=== PATIENT | female | born 1995 | race Caucasian/White ===

== ENCOUNTER 2020-10-16 20:45 | Emergency (ER) | payer OTHER, SELFPAY ==
--- NOTE | ~2020-10-16 | CT_ITS ---
EXAMINATION: CT ABDOMEN AND PELVIS WITHOUT CONTRAST CLINICAL INFORMATION: Right flank pain with radiation to groin COMPARISON: Ultrasound abdomen 10/30/2018 TECHNIQUE: Multidetector volumetric imaging was performed from the superior aspect of the liver through the pubic symphysis. Sagittal and coronal reformatted images were obtained on the technologist's workstation. This CT examination was performed using dose optimization techniques as appropriate, variously including the following: *Automated exposure control *Adjustment of mA and/or kV according to patient size (this includes techniques or standardized protocols for targeted exams where dose is matched to indication/reason for exam; i.e. extremities or head) *Use of iterative reconstruction technique DLP: 984 mGy-cm FINDINGS: LUNG BASES: The visualized lung bases are unremarkable. LIVER, GALLBLADDER, AND BILIARY TREE: The liver is normal in size, shape, and attenuation. No focal hepatic lesion or biliary ductal dilatation is present. The gallbladder is unremarkable with no evidence of radiopaque gallstones, gallbladder wall thickening, or obvious pericholecystic inflammatory changes. PANCREAS: Unremarkable. SPLEEN: Unremarkable. ADRENAL GLANDS: Unremarkable. KIDNEYS AND URETERS: Right: There is a 2.5 mm obstructing calculus present at the right ureterovesical junction there is minimal prominence of the ureter and only minimal prominence of the collecting system. An additional nonobstructing punctate even smaller calculus is present at the right upper pole. No renal masses are seen Left: 2 small punctate nonobstructing left-sided calculi are present the largest is in the lower pole measuring 2.3 mm. No left-sided hydronephrosis is seen. No left renal masses are present. The left ureter is nondilated. BLADDER: Empty and cannot be adequately evaluated. There is a stone at the right ureterovesical junction (see above). A urachal remnant is present. GASTROINTESTINAL TRACT: The small and large bowel are unremarkable. The appendix is tiny but unremarkable. ABDOMINAL WALL: No significant hernia is appreciated. LYMPH NODES: Normal. VASCULAR: Unremarkable. PELVIC VISCERA: An anteverted uterus is present. An abnormal adnexal mass or free intraperitoneal fluid is not seen. OSSEOUS STRUCTURES: Unremarkable. CT/CT abdomen pelvis wo con IMPRESSION: 2.5 mm right-sided calculus lodged at the right ureterovesical junction. There are other bilateral small punctate intrarenal nonobstructing calculi present.
[2020-10-16 21:11] VITALS: BP 161/82; PULSE 106; RESP 20; TEMP 36.6; BMI 38.9
[2020-10-16 22:08] LABS: MANUAL DIFF FLAG NO
[2020-10-16 22:09] LABS: Basophils Percent Auto 0.4 % (0-2); Eosinophils Percent Auto 0.2 % (0-4); Hematocrit 37.7 % (37-47); Hemoglobin 12.1 g/dl (12.0-16.0); Imm Gran Abs Auto 0.03 X10*3/uL (0.00-0.03); Imm Gran Pct Auto 0.3 % (0.0-0.4); Lymphocytes Absolute Auto 0.9 X10*3/uL (1.2-4.9); Lymphocytes Percent Auto 8.7 % (20-40); Mean Corpuscular HGB Conc 32.1 g/dl (31.0-35.0); Mean Corpuscular Hemoglobin 27.2 pg (27.0-33.0); Mean Corpuscular Volume 84.7 fL (80-98); Monocytes Absolute Auto 0.3 X10*3/uL (0.1-1.2); Monocytes Percent Auto 2.9 % (2-11); Neutrophils Absolute Auto 8.9 X10*3/uL (2.0-8.3); Neutrophils Percent Auto 87.5 % (45-73); Platelet Count 327 X10*3/uL (160-400); Red Blood Count 4.45 X10*6/uL (4.20-5.50); Red Cell Distribution Width 12.9 % (11.0-16.0); White Blood Count 10.1 X10*3/uL (4.8-10.8)
--- NOTE | 2020-10-16 22:49 | ED.ABDPAIN ---
HPI - Abdominal Pain General Chief Complaint: Abdominal Pain Stated Complaint: Lower right abdominal pain Time Seen by Provider: 10/16/20 22:49 Source: patient Mode of arrival: ambulatory Limitations: no limitations History of Present Illness HPI narrative: Patient with right flank pain that started 4 hours ago, patient has had some nausea, feels like she can't pee elicited complaint: abdominal pain and flank pain Pertinent past history: none Onset (ago): hour(s) Pain Consistency: constant Location: R flank Severity: moderate Quality: stabbing Radiation: RLQ Relieving factors: nothing Associated symptoms: nausea Related Data Previous Rx's Medication Instructions Recorded naproxen [Naprosyn] 500 mg PO BID #20 tab 10/17/20 ondansetron HCl [Zofran] 4 mg PO Q8H PRN #10 tab 10/17/20 tamsulosin [Flomax] 0.4 mg PO DAILY #10 cap 10/17/20 Allergies Allergy/AdvReac Type Severity Reaction Status Date / Time No Known Allergies Allergy Verified 10/16/20 21:10 [No Known Allergies*] Review of Systems Constitutional: Reports no additional constitutional complaints Eyes: Reports no additional eye complaints Denies dizziness Cardiovascular: Reports no additional cardiovascular complaints Respiratory: Reports as per HPI Gastrointestinal: Reports no additional gastrointestinal complaints Genitourinary: Reports no additional female genitourinary complaints Musculoskeletal: Reports no additional musculoskeletal complaints Skin/Breast: Denies rash Reports system reviewed and no additional complaints, except as documented, Denies dizziness and Denies Sensory deficit (Neuro) Psychiatric: Denies anxiety Physical Exam Vital Signs: Vital Signs: Last Vital Signs Temp 97.6 F 10/17/20 00:50 Pulse 116 H 10/17/20 00:50 Resp 18 10/17/20 00:50 BP 130/86 10/17/20 00:50 Pulse Ox 96 10/17/20 00:50 Body Mass Index 38.9 Const: Other: female in obvious pain Nutritional Appearance: obese Orientation/consciousness: oriented to person and patient oriented x3 Limitations: no limitations HENMT: Head: Yes normal to inspection Ears: external ears normal General nose exam: Normal external nose present Mouth: Normal oral and palatal mucosa present and oropharynx normal Throat: Yes posterior oropharynx normal Eyes: General: appearance normal, both eyes and all related structures Neck: Other: supple Neck: Yes normal visual inspection Chest: Chest palpation & inspection: normal inspection of the chest Resp: Auscultation: clear to auscultation bilaterally Cardio: Jugular venous distension: no JVD Rate: regular rate Rhythm: regular rhythm Heart sounds: S1 normal heart sound present and S2 normal heart sound present GI: Inspection: Yes normal to inspection Palpation (GI): Soft to palpation, nontender and No hepatosplenomegaly present Auscultation: normal bowel sounds : Other: right CVAT Skin: General skin exam: no rashes or lesions noted Neuro: General: oriented to person and patient oriented x3 Cranial nerves: Yes CN's II-XII intact bilaterally Motor exam (neuro): 5/5 motor strength present throughout Sensory Exam: No Sensory deficit (Neuro) Extrem: General: Yes normal to inspection Psych: Appearance: grossly normal Course Course Course Narrative: unofficial bedside ultrasound was negative for gallstones Reevaluation(s) Reevaluation #1: improved resting comfortably Time: 01:14 MDM - Abdominal Pain Lab Data Result diagrams: 10/16/20 22:03 10/16/20 22:03 Labs: Lab Results 10/16/20 10/16/20 10/16/20 Range/Units 22:03 22:03 22:03 WBC 10.1 (4.8-10.8) X10*3/uL RBC 4.45 (4.20-5.50) X10*6/uL Hgb 12.1 (12.0-16.0) g/dl Hct 37.7 (37-47) % MCV 84.7 (80-98) fL MCH 27.2 (27.0-33.0) pg MCHC 32.1 (31.0-35.0) g/dl RDW 12.9 (11.0-16.0) % Plt Count 327 (160-400) X10*3/uL MPV 10.0 (9.4-12.3) fL Immature Gran % (Auto) 0.3 (0.0-0.4) % Neut % (Auto) 87.5 H (45-73) % Lymph % (Auto) 8.7 L (20-40) % [place] % (Auto) 2.9 (2-11) % Eos % (Auto) 0.2 (0-4) % Baso % (Auto) 0.4 (0-2) % Lymph # (Auto) 0.9 L (1.2-4.9) X10*3/uL [place] # (Auto) 0.3 (0.1-1.2) X10*3/uL Eos # (Auto) 0.0 (0.0-0.4) X10*3/uL Baso # (Auto) 0.0 (0.0-0.2) X10*3/uL Abs Immat Gran (auto) 0.03 (0.00-0.03) X10*3/uL Absolute Neuts (auto) 8.9 H (2.0-8.3) X10*3/uL Absolute Nucleated RBC 0.000 (0.0-0.012) X10*3/uL Nucleated RBC % (auto) 0.0 (0.0-0.2) /100WBC Hold Blue Top SEE NOTE Sodium 140 (135-145) mmol/L Potassium 4.4 (3.3-5.1) mmol/L Chloride 105 (96-108) mmol/L Carbon Dioxide 24 (22-29) mmol/L Anion Gap 15 (12-20) BUN 11 (9-16) mg/dL Creatinine 0.70 (0.5-1.4) mg/dL Estim Creat Clear Calc 144.8 Estimated GFR > 60 Random Glucose 116 H (60-115) mg/dL Calcium 9.3 (8.4-10.2) mg/dL Total Bilirubin 0.2 (0.0-1.0) mg/dL AST 10 (5-31) U/L ALT 12 (0-31) U/L Alkaline Phosphatase 89 (39-117) U/L Total Protein 7.8 (6.5-8.0) g/dL Albumin 4.4 (3.5-5.0) g/dL Lipase 6 L (8-78) U/L Urine Color Urine Appearance Urine pH (5.0-8.0) Ur Specific [place] (1.005-1.025) Urine Protein (NEG-TRACE) MG/DL Urine Glucose (UA) (NEG) MG/DL Urine Ketones (NEG) MG/DL Urine Blood (NEG) Urine Nitrite (NEG) Ur Leukocyte Esterase (NEG) Urine RBC (0) /HPF Urine WBC (0-4) /HPF Ur Squamous Epith Cells /LPF Amorphous Sediment /LPF Urine Bacteria /LPF Urine Mucus /LPF Urine Test (NEGATIVE) 10/17/20 10/17/20 Range/Units 00:44 00:44 WBC (4.8-10.8) X10*3/uL RBC (4.20-5.50) X10*6/uL Hgb (12.0-16.0) g/dl Hct (37-47) % MCV (80-98) fL MCH (27.0-33.0) pg MCHC (31.0-35.0) g/dl RDW (11.0-16.0) % Plt Count (160-400) X10*3/uL MPV (9.4-12.3) fL Immature Gran % (Auto) (0.0-0.4) % Neut % (Auto) (45-73) % Lymph % (Auto) (20-40) % [place] % (Auto) (2-11) % Eos % (Auto) (0-4) % Baso % (Auto) (0-2) % Lymph # (Auto) (1.2-4.9) X10*3/uL [place] # (Auto) (0.1-1.2) X10*3/uL Eos # (Auto) (0.0-0.4) X10*3/uL Baso # (Auto) (0.0-0.2) X10*3/uL Abs Immat Gran (auto) (0.00-0.03) X10*3/uL Absolute Neuts (auto) (2.0-8.3) X10*3/uL Absolute Nucleated RBC (0.0-0.012) X10*3/uL Nucleated RBC % (auto) (0.0-0.2) /100WBC Hold Blue Top Sodium (135-145) mmol/L Potassium (3.3-5.1) mmol/L Chloride (96-108) mmol/L Carbon Dioxide (22-29) mmol/L Anion Gap (12-20) BUN (9-16) mg/dL Creatinine (0.5-1.4) mg/dL Estim Creat Clear Calc Estimated GFR Random Glucose (60-115) mg/dL Calcium (8.4-10.2) mg/dL Total Bilirubin (0.0-1.0) mg/dL AST (5-31) U/L ALT (0-31) U/L Alkaline Phosphatase (39-117) U/L Total Protein (6.5-8.0) g/dL Albumin (3.5-5.0) g/dL Lipase (8-78) U/L Urine Color YELLOW Urine Appearance HAZY Urine pH 6.0 (5.0-8.0) Ur Specific [place] 1.020 (1.005-1.025) Urine Protein NEG (NEG-TRACE) MG/DL Urine Glucose (UA) NEG (NEG) MG/DL Urine Ketones NEG (NEG) MG/DL Urine Blood 3+ H (NEG) Urine Nitrite NEG (NEG) Ur Leukocyte Esterase NEG (NEG) Urine RBC 50-75 H (0) /HPF Urine WBC 0 (0-4) /HPF Ur Squamous Epith Cells TRACE /LPF Amorphous Sediment TRACE /LPF Urine Bacteria TRACE /LPF Urine Mucus 1+ /LPF Urine Test NEGATIVE (NEGATIVE) Imaging Data CT scan - abdomen: Radiologist's impression: IMPRESSION: 2.5 mm right-sided calculus lodged at the right ureterovesical junction. There are other bilateral small punctate intrarenal nonobstructing calculi present. Discharge Plan Discharge Clinical Impression: Calculus of kidney Patient Disposition: Home, Self-Care Instructions: Renal Colic (ED) Additional Instructions: strain all urine for kidney stone Prescriptions: New ondansetron HCl [Zofran] 4 mg tablet 4 mg PO Q8H PRN (Reason: nausea and vomiting) Qty: 10 RF: 0 naproxen [Naprosyn] 500 mg tablet 500 mg PO BID Qty: 20 RF: 0 tamsulosin [Flomax] 0.4 mg capsule 0.4 mg PO DAILY Qty: 10 RF: 0 Referrals: Dewayne Carson MD [Physician] - 1 week [facility] Past Medical History Medical History Depression Surgical History History of placement of ear tubes Family History Family History Father No problems noted. Mother No problems noted. Maternal Grandfather Hypertension CVD (cardiovascular disease) Social History Social History Alcohol intake: current Alcohol intake frequency: does not drink Smoking Status: Never smoker Use of substances other than those prescribed or required for medical reasons: No Advance Directives: No Advance Directives Information Provided: Yes
[2020-10-16 22:50] LABS: Alanine Aminotransferase 12 U/L (0-31); Albumin Level 4.4 g/dL (3.5-5.0); Alkaline Phosphatase 89 U/L (39-117); Anion Gap 15 (12-20); Aspartate Amino Transferase 10 U/L (5-31); Bilirubin Total 0.2 mg/dL (0.0-1.0); Blood Urea Nitrogen 11 mg/dL (9-16); Calcium 9.3 mg/dL (8.4-10.2); Carbon Dioxide 24 mmol/L (22-29); Chloride 105 mmol/L (96-108); Creatinine Clr Calc Pharmacy 144.8; Estimated Glomerular Filt Rate > 60; Glucose Random 116 mg/dL (60-115); Lipase 6 U/L (8-78); Potassium 4.4 mmol/L (3.3-5.1); Sodium 140 mmol/L (135-145); Total Protein 7.8 g/dL (6.5-8.0)
--- NOTE | 2020-10-16 23:01 | PC.NURSE ---
REPORT FROM ROHINI MOSQUEDA. PLAN OF CARE FOR IMAGING.
[2020-10-16] MEDS: ondansetron HCL 4 MG/2 ML VIAL IVPUSH (23:14)
[2020-10-16] MEDS: Ketorolac Tromethamine 30 MG/ML VIAL IVPUSH (23:14)
[2020-10-16] MEDS: 0.9 % Sodium Chloride 1,000 ML 999 ML IVCONT (23:14)
[2020-10-17] MEDS: 0.9 % Sodium Chloride 1,000 ML 999 ML IVCONT (00:15)
[2020-10-17 00:50] VITALS: BP 130/86; PULSE 116; RESP 18; TEMP 36.4; O2SAT 96
[2020-10-17 00:54] LABS: Glucose Urine UA NEG (NEG); Leukocyte Esterase Urine NEG (NEG); Nitrite Urine NEG (NEG); Urine Blood 3+ (NEG); Urine Ketones NEG (NEG); Urine Protein NEG (NEG-TRACE)
[2020-10-17 00:56] LABS: Appearance Urine HAZY; Color Urine YELLOW
[2020-10-17 01:01] LABS: Amorphous Sediment Urine TRACE /LPF; Bacteria Urine TRACE /LPF; Mucus Urine 1+ /LPF; RBC Urine 50-75 /HPF (0); Squamous Epithelial Cell Urine TRACE /LPF; WBC Urine 0 /HPF (0-4)
[2020-10-17 01:13] LABS: Urine Pregnancy NEGATIVE (NEGATIVE)
[2020-10-17 01:14] LABS: UPreg QC Valid YES
== END 2020-10-17 01:30 | disposition home or self-care (01) ==
PROVIDERS: Emergency Provider Emergency Medicine; PCP Internal Medicine
DX: N20.0 Calculus of kidney (principal); Z79.899 Other long term (current) drug therapy
CPT/HCPCS: 36415; 74176; 80053; 81001; 81025; 83690; 85025; 96365; 96375; 99284; J1885; J2405

== ENCOUNTER → 2020-11-06 13:58 | Outpatient (BNVA) | payer OTHER, SELFPAY | PROVIDERS: PCP Internal Medicine; Visit Provider Urology ==

== ENCOUNTER 2021-04-15 09:01 | Outpatient (REF) | payer OTHER, SELFPAY | END 2021-04-15 09:02 | disposition home or self-care (01) | LOC: HO.LAB 09:01 | PROVIDERS: PCP Internal Medicine; Visit Provider Internal Medicine | DX: Z13.89 Encounter for screening for other disorder (principal) ==

== ENCOUNTER 2021-05-18 10:27 | Outpatient (REF) | payer OTHER, SELFPAY ==
--- NOTE | ~2021-05-18 | US_ITS ---
EXAMINATION: US RETROPERITONEAL LIMITED (RENAL ONLY) CLINICAL INFORMATION: Calculus of kidney. COMPARISON: CT abdomen and pelvis 10/16/2020. Ultrasound abdomen 10/30/2018. TECHNIQUE: Real-time imaging of the kidneys. FINDINGS: RIGHT KIDNEY: 12.0 x 6.0 x 5.3 cm (SAG x AP x TRV). The kidney is normal in size, contour, and echogenicity. Renal cortical thickness is normal. No calculi or focal parenchymal lesions. No hydronephrosis. There are multiple echogenic foci seen with no twinkling. LEFT KIDNEY: 12.0 x 5.1 x 5.3 cm (SAG x AP x TRV). The kidney is normal in size, contour, and echogenicity. Renal cortical thickness is normal. No calculi or focal parenchymal lesions. No hydronephrosis. There is echogenic calcification versus stone in lower pole measuring 0.5 x 0.2 cm with no twinkling. US/US renal BI IMPRESSION: Multiple echogenic foci with no twinkle artifact in both kidneys. No cyst or solid mass seen. There is no hydronephrosis.
== END 2021-05-18 10:28 | disposition home or self-care (01) ==
LOC: HO.US 10:27
PROVIDERS: PCP Internal Medicine; Visit Provider Urology
DX: N20.0 Calculus of kidney (principal)
CPT/HCPCS: 76775

== ENCOUNTER → 2021-05-25 10:50 | Outpatient (BNVA) | payer OTHER, SELFPAY | PROVIDERS: PCP Internal Medicine ==

== ENCOUNTER 2022-03-11 08:26 | Outpatient (REF) | payer OTHER, SELFPAY ==
--- NOTE | ~2022-03-11 | US_ITS ---
EXAMINATION: US RETROPERITONEAL LIMITED (RENAL ONLY) CLINICAL INFORMATION: Calculus kidney. COMPARISON: Renal ultrasound 05/18/2021. CT abdomen and pelvis 10/16/2020. Ultrasound abdomen complete 10/30/2018. TECHNIQUE: Real-time imaging of the kidneys. Limited visualization due to bowel gas, body habitus and technical factors. FINDINGS: RIGHT KIDNEY: 12.6 x 5.0 x 5.1 cm (SAG x AP x TRV). Multiple punctate echogenic foci, possibly nonobstructing renal calculi.No hydronephrosis. LEFT KIDNEY: 12.3 x 5.1 x 5.2 cm (SAG x AP x TRV). Multiple punctate echogenic foci, possibly nonobstructing renal calculi.No hydronephrosis. US/US renal BI IMPRESSION: Multiple punctate echogenic foci, possibly representing nonobstructing bilateral renal calculi.No hydronephrosis.
== END 2022-03-11 08:27 | disposition home or self-care (01) ==
LOC: HO.US 08:26
PROVIDERS: Visit Provider Urology
DX: N20.0 Calculus of kidney (principal)
CPT/HCPCS: 76775

== ENCOUNTER 2022-04-26 09:36 | Outpatient (REF) | payer OTHER, SELFPAY ==
[2022-04-26 13:24] LABS: Alanine Aminotransferase 8 U/L (0-31); Albumin Level 4.1 g/dL (3.5-5.0); Alkaline Phosphatase 81 U/L (39-117); Anion Gap 14 (12-20); Aspartate Amino Transferase 10 U/L (5-31); Bilirubin Total 0.6 mg/dL (0.0-1.0); Blood Urea Nitrogen 8 mg/dL (9-16); Carbon Dioxide 22 mmol/L (22-29); Chloride 107 mmol/L (96-108); Cholesterol 185 mg/dL; Estimated Glomerular Filt Rate > 60; Glucose Random 83 mg/dL (60-115); HDL Cholesterol 54 mg/dL; LDL Cholesterol Calculated 108 mg/dl; Potassium 4.3 mmol/L (3.3-5.1); Sodium 139 mmol/L (135-145); Thyroid Stimulating Hormone 6.57 uIU/mL (0.32-4.0); Total Protein 7.2 g/dL (6.5-8.0); Triglycerides 117 mg/dL
== END 2022-04-26 09:37 | disposition home or self-care (01) ==
LOC: HO.LAB 09:36
PROVIDERS: PCP Internal Medicine; Visit Provider Internal Medicine
DX: Z00.00 Encounter for general adult medical examination without abnormal findings (principal); E66.01 Morbid (severe) obesity due to excess calories; Z68.41 Body mass index [BMI] 40.0-44.9, adult
CPT/HCPCS: 36415; 80053; 80061; 84443

== ENCOUNTER 2023-05-03 08:24 | Outpatient (AMB) | payer OTHER, SELFPAY ==
[2023-05-03 08:27] VITALS: BP 126/80; PULSE 115; O2SAT 98; BMI 40.3
--- NOTE | 2023-05-03 08:27 | MHC.PC.OV ---
Vital Signs 05/03/23 08:27 Height 5 ft 4 in Weight 235 lb BMI 40.3 BP 126/80 Blood Pressure Location Lt brachial Position Sitting Pulse 115 H Pulse Source Pulse Oximeter Pulse Oximetry (%) 98 Oxygen Delivery Method Room Air Intake Visit Reasons: Annual Exam Intake Note: Patient here for a physical exam Shank Breaker Required: No Accompanied by: Self / Same As Patient Allergies No Known Allergies [No Known Allergies*] Allergy (Verified 05/03/23 08:44) Medication List - Last Reconciled 05/03/23 by Sole Childerss MD No Known Home Meds Tobacco use date assessed: 05/03/23 Dental Screening Dental Screen Date: 05/03/23 Did you have a dental visit in the last 12 months?: No Did you have a dental problem in the last 6 months where you did not have access to dental care?: No Was dental information given to patient?: Patient has dentist HPI HPI Comments History of Present Illness Details This is a 27-year-old female with morbid obesity and moderate recurrent major depression that comes for her physical exam. She has a BMI of 40.3 and declines weight loss surgery. She still has depression but declines any type of treatment. Last Pap smear was 2018 and was negative. [facility] Medical History (Updated 05/03/23 @ 09:15 by Sole Childress MD) Insomnia FERNANDO (generalized anxiety disorder) Moderate recurrent major depression Pure hypercholesterolemia Morbid obesity with BMI of 40.0-44.9, adult Depression Surgical History History of placement of ear tubes Family History Father No problems noted. Mother Mental health disorder Maternal Grandfather Hypertension CVD (cardiovascular disease) Social History Housing: Apartment Alcohol intake: current Alcohol intake frequency: holidays/special occasions only Alcohol type: other Patient Tobacco Use Status: Former Tobacco user Tobacco use type: Cigarette e-Cigarette/Vaping Use: Never Used Second Hand Smoke Exposure: No service: No Current occupational status: unemployed Cognitive needs: No Hearing needs: No Vision needs: No Questionnaire PHQ-9 Over the last 2 weeks, how often have you been bothered by any of the following problems? 1. Little interest or pleasure in doing things: nearly every day 2. Feeling down, depressed, or hopeless: nearly every day 3. Trouble falling or staying asleep, or sleeping too much: not at all 4. Feeling tired or having little energy: several days 5. Poor appetite or overeating: several days 6. Feeling bad about yourself - or that you are a failure or have let yourself or your family down: several days 7. Trouble concentrating on things, such as reading the newspaper or watching television: several days 8. Moving or speaking so slowly that other people could have noticed. Or the opposite - being so fidgety or restless that you have been moving around a lot more than usual: not at all 9. Thoughts that you would be better off or of hurting yourself in some way: not at all Total score: 10 Depression Screening Interpretation: Positive Depression Screening Follow-up: Declines treatment Depression Screening Done: Yes 25417 - PHQ-9 Billing: Yes Source: Developed by Drs. Jose Rincon, Uzma Perez, Jamie Snow and colleagues, with an educational jonatan from [employer]. Thrive Questionnaire Date Thrive assessed: 05/03/23 I am a: Patient What is your living situation today?: I have a steady place to live Within the past 12 months, did the food you bought not last and you didn't have the money to get more?: Never true Within the past 12 months, did you worry whether your food would run out before you got money to buy more?: Never true Do you have trouble paying for medicines?: No Do you have trouble getting transportation to medical appointments?: No Do you have trouble paying your heating and electricity bill?: No Do you have trouble taking care of your child, family member or friend?: No Do you have trouble with day-to-day activities such as bathing, preparing meals, shopping, managing finances, etc.?: No Are you currently unemployed and looking for a job?: No Are you interested in more education?: No Please select the resources that you would like help with: None Currently or been in a relationship where the following occur: no concerns reported AUDIT C Alcohol Use Questionnaire (AUDIT-C) 1. How often do you have a drink containing alcohol?: Monthly or less 2. How many drinks containing alcohol do you have on a typical day when you are drinking?: 1 or 2 3. How often do you have six or more drinks on one occasion?: Never Total Score: 1 Score Reviewed/Action Taken: No FERNANDO-7 AMB Questionnaire FERNANDO-7 Date FERNANDO - 7 assessed: 05/03/23 Feeling nervous, anxious, or on edge: 3 = Nearly every day Not being able to stop or control worryin = Several days Worrying too much about different things: 2 = More than half the days Trouble relaxin = Several days Being so restless that it is hard to sit still: 1 = Several days Becoming easily annoyed or irritable: 2 = More than half the days Feeling afraid as if something awful might happen: 2 = More than half the days Total FERNANDO-7 score (0-4 normal; 5-9 mild; 10-14 moderate; 15-21 severe): 12 Source: Developed by Drs. Jose Rincon, Umza Perez, Jamie Snow and colleagues, with an educational jonatan from [employer]. FERNANDO-7 Assessment Billing FERNANDO-7 Assessment Tool: FERNANDO-7 Assessment 24473 Review of Systems Const All systems reviewed & are unremarkable except as noted in HPI and below Eyes Reports no additional complaints, Denies change in vision and Denies other visual disturbances Card Denies chest pain at rest, Denies chest pain with activity, Denies edema, Denies irregular heart rhythm, Denies claudication, Denies dyspnea, Denies dyspnea on exertion, Denies orthopnea, Denies paroxysmal nocturnal dyspnea and Denies slow heart rate Resp Denies cough, Denies dyspnea and Denies dyspnea on exertion GI Denies abdominal pain, Denies change in bowel habits, Denies excessive flatus, Denies nausea and Denies vomiting Denies urinary incontinence, Denies urinary hesitancy and Denies urinary urgency Musc Denies abnormal gait, Denies atrophy, Denies deformity and Denies limited range of motion Skin/Breast Denies bleeding lesions, Denies changing lesions and Denies rash Neuro Denies abnormal gait and Denies lack of coordination Psych Reports anxiety and Reports depression Physical exam (Primary Care) Vital Signs: Last Vital Signs Pulse 115 H 05/03/23 08:27 BP 126/80 05/03/23 08:27 Pulse Ox 98 05/03/23 08:27 Oxygen Delivery Method Room Air 05/03/23 08:27 BMI result Body Mass Index 40.3 Tobacco/Smoking Status: Tobacco use Status Tobacco use date assessed 05/03/23 05/03/23 08:35 Patient Tobacco Use Status Former Tobacco user 05/03/23 08:35 Tobacco use type Cigarette 05/03/23 08:35 e-Cigarette/Vaping Use Never Used 05/03/23 08:35 PHQ-9: PHQ-9 Score PHQ-9: Total score 0 05/03/23 08:35 Depression Screening Interpretation: Positive Depression Screening Follow-up: Declines treatment Thrive Assessment: Date of Thrive Assessment Date Thrive assessed 05/03/23 05/03/23 08:35 Currently or been in a relationship where the following occur: no concerns reported Const Orientation/consciousness: patient oriented x3 HENMT Head: Yes normal to inspection, Yes normocephalic and Yes atraumatic Ears: external ears normal Eyes General: appearance normal, both eyes and all related structures Eyelids: Yes eyelids normal Conjunctivae: conjunctivae normal Neck Neck: Yes normal visual inspection and Yes supple Resp Effort & Inspection: normal respiratory effort Auscultation: clear to auscultation bilaterally Cardio Jugular venous distension: no JVD Rate: regular rate Rhythm: regular rhythm Heart sounds: S1 normal heart sound present and S2 normal heart sound present GI Inspection: Yes normal to inspection Palpation (GI): Soft to palpation and nontender Auscultation: normal bowel sounds Skin General skin exam: no rashes or lesions noted Neuro General: patient oriented x3 and no focal motor deficits Extrem General: Yes full ROM Psych Affect: Sad affect present Attitude: Guarded attititude/behavior present and Avoids eye contact (attititude/behavior) Assessment and Plan Assessment & Plan (1) Encounter for physical examination: Code(s): Z00.00 - Encounter for general adult medical examination without abnormal findings Plan: Repeat in a year. (2) Moderate recurrent major depression: Code(s): F33.1 - Major depressive disorder, recurrent, moderate Plan: Declines any type of treatment including counseling or medication. (3) Morbid obesity with BMI of 40.0-44.9, adult: Code(s): E66.01 - Morbid (severe) obesity due to excess calories; Z68.41 - Body mass index [BMI] 40.0-44.9, adult Plan: Start diet and exercise. BMI goal is less than 30. Orders: Orders Vitamin D 25-OH Total Today E55.9 - Vitamin D deficiency, unspecified Free T4 (Free Thyroxine) Today R79.89 - Other specified abnormal findings of blood chemistry Thyroid Peroxidase Antibodies Today R79.89 - Other specified abnormal findings of blood chemistry Thyroid Stimulating Hormone Today R79.89 - Other specified abnormal findings of blood chemistry Thyroglobulin Antibodies Today R79.89 - Other specified abnormal findings of blood chemistry Comprehensive Met. Panel Today Z00.00 - Encounter for general adult medical examination without abnormal findings Referrals POLLS OR SURVEYS INTERVIEWER Referral Z12.4 - Encounter for screening for malignant neoplasm of cervix Coding Level of Care Code Est Pt Prev Care [id number]([id number]) Diagnoses Encounter for physical examination Z00.00 Moderate recurrent major depression F33.1 Morbid obesity with BMI of 40.0-44.9, adult E66.01; Z68.41 Additional Codes FERNANDO-7 Assessment Billing - FERNANDO-7 Assessment Tool: FERNANDO-7 Assessment 44245 ([id number]) Time Spent (min) 31
== END 2023-05-03 08:56 | disposition home or self-care (01) ==
PROVIDERS: Visit Provider Internal Medicine
DX: Z00.00 Encounter for general adult medical examination without abnormal findings (principal); F33.1 Major depressive disorder, recurrent, moderate; E66.01 Morbid (severe) obesity due to excess calories; Z68.41 Body mass index [BMI] 40.0-44.9, adult
CPT/HCPCS: 96127; 99395

== ENCOUNTER 2023-05-03 09:11 | Outpatient (REF) | payer OTHER, SELFPAY ==
[2023-05-03 11:38] LABS: Alanine Aminotransferase 10 U/L (0-31); Albumin Level 4.1 g/dL (3.5-5.0); Alkaline Phosphatase 86 U/L (39-117); Anion Gap 11 (12-20); Aspartate Amino Transferase 11 U/L (5-31); Bilirubin Total 0.3 mg/dL (0.0-1.0); Blood Urea Nitrogen 10 mg/dL (9-16); Calcium 8.8 mg/dL (8.4-10.2); Carbon Dioxide 26 mmol/L (22-29); Chloride 105 mmol/L (96-108); Estimated Glomerular Filt Rate > 60; Glucose Random 92 mg/dL (60-115); Potassium 3.9 mmol/L (3.3-5.1); Sodium 138 mmol/L (135-145); Total Protein 7.4 g/dL (6.5-8.0)
[2023-05-03 11:55] LABS: Free T4 (Free Thyroxine) 0.96 ng/dL (0.71-1.85); Thyroid Stimulating Hormone 2.97 uIU/mL (0.32-4.0); Vitamin D 25-OH Total 7.9 ng/mL (>30)
[2023-05-04 09:22] LABS: Thyroglobulin Antibodies 9 IU/mL (< or = 1); Thyroid Peroxidase Antibodies 661 IU/mL (<9)
== END 2023-05-03 09:12 | disposition home or self-care (01) ==
LOC: HO.LAB 09:11
PROVIDERS: PCP Internal Medicine; Visit Provider Internal Medicine
DX: Z00.00 Encounter for general adult medical examination without abnormal findings (principal); E55.9 Vitamin D deficiency, unspecified; R79.89 Other specified abnormal findings of blood chemistry
CPT/HCPCS: 36415; 80053; 82306; 84439; 84443; 86376; 86800

== ENCOUNTER 2023-08-02 08:37 | Outpatient (AMB) | payer OTHER, SELFPAY ==
[2023-08-02 08:44] VITALS: BP 118/80; BMI 40.3
--- NOTE | 2023-08-02 08:44 | A.OFFVIS_ITS ---
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 Doing well with no concerns. She tries to eat healthy and stays active with exercise. Regular monthly menses, x6d, painful menses x3d. Uses Tylenol-not providing relief at times. Currently is not sexually active. She denies vaginal itching and irritation. STI screening offered; she accepts. Denies family history of breast, ovarian or colon cancer. Last pap smear 2018, negative. [facility] Medical History Insomnia FERNANDO (generalized anxiety disorder) Moderate recurrent major depression Pure hypercholesterolemia Morbid obesity with BMI of 40.0-44.9, adult Depression Surgical History History of placement of ear tubes Family History Father No problems noted. Mother Mental health disorder Maternal Grandfather Hypertension CVD (cardiovascular disease) Social History Housing: Apartment Alcohol intake: current Alcohol intake frequency: holidays/special occasions only Alcohol type: other Patient Tobacco Use Status: Former Tobacco user Tobacco use type: Cigarette e-Cigarette/Vaping Use: Never Used Second Hand Smoke Exposure: No service: No Current occupational status: unemployed Cognitive needs: No Hearing needs: No Vision needs: No Female Reproductive History Menstrual Duration of menses: 6-7 days Date of last menstrual period: 07/13/23 control method: none Total pregnancies: 0 Date of last pap smear: 02/11/19 (neg) Review of Systems Const All systems reviewed & are unremarkable except as noted in HPI and below Reports as per HPI Eyes Reports no additional complaints ENT Reports no additional complaints Card Reports no additional complaints Resp Reports no additional complaints GI Reports as per HPI and Reports no additional complaints Reports as per HPI Musc Reports no additional complaints Skin/Breast Reports as per HPI Neuro Reports no additional complaints Psych Reports no additional complaints Endo Reports no additional complaints Burak/Lymph Reports no additional complaints Aller/Immun Reports no additional complaints Physical Exam Vital Signs: Last Vital Signs BP 118/80 08/02/23 08:44 BMI result Body Mass Index 40.3 Const General: cooperative, healthy appearing, no acute distress, well developed and alert Orientation/consciousness: patient oriented x3 HEENT Head: Yes normal to inspection Eyes General: appearance normal, both eyes and all related structures Neck Neck: Yes normal visual inspection Thyroid: Thyroid normal Chest Chest palpation & inspection: normal inspection of the chest and other (no puckering, dimpling, peau de orange, retraction, discharge, masses) Breast/axilla inspection: normal inspection of the breasts Breast/axilla palpation: normal palpation of the breasts Resp Effort & Inspection: normal respiratory effort GI Inspection: Yes normal to inspection and Yes obesity Palpation (GI): Soft to palpation Rectal Exam - Female: deferred General: Yes bladder normal to palpation External Female Exam: normal external appearance and normal appearance of the urethra Speculum Exam - Vagina: normal appearance of the vagina, normal palpation and normal vaginal discharge Speculum Exam - Cervix: normal appearance of the cervix and normal palpation Bimanual exam- vagina & uterus: normal bimanual exam, normal palpation, uterine size normal, bladder normal to palpation, normal palpation and non-tender Bimanual Exam- Adnexa, other: no masses Skin General skin exam: no rashes or lesions noted Rashes: no rashes Neuro General: patient oriented x3 Cognition (Neuro): normal cognition Extrem General: Yes normal to inspection Psych Attitude: cooperative Thought process: Normal thought process present Assessment & Plan Assessment & Plan (1) Encounter for well woman exam with routine gynecological exam: Code(s): Z01.419 - Encounter for gynecological examination (general) (routine) without abnormal findings Plan Discussed: Current recommendations for pap smears per ASCCP guidelines. Breast awareness and periodic breast exams. Maintain a healthy lifestyle including a well balanced Mediterranean like diet, and routine exercise, spending time in nature outdoors. Use condoms for STI and prevention. Consider use of ibuprofen 200 mg, 3 doses 2 equals 600 mg take with food and use every 6 hours as needed for the 1st 3 days of her menstrual cycle. She declines a prescription for medication, and will buy saln-myh-rjtchel. Advised she can also additionally use a heating pad for her menstrual cramps. Patient verbalizes understanding and agrees to the plan of care. She was given opportunity to ask questions and all questions were answered to the best of my ability. 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 This note is constructed using voice recognition software. While every effort has been made to ensure accuracy, phone technician errors may have been included. Orders: Orders HIV Ab/Ag Today Z20.2 - Contact with and (suspected) exposure to infections with a predominantly sexual mode of transmission Hepatitis C Antibody Reflex Today Z20.2 - Contact with and (suspected) exposure to infections with a predominantly sexual mode of transmission Hepatitis B Core Antibody Today Z20.2 - Contact with and (suspected) exposure to infections with a predominantly sexual mode of transmission Syphilis Screen Today Z20.2 - Contact with and (suspected) exposure to infections with a predominantly sexual mode of transmission Coding Level of Care Code New Pt Prev Care 18-39yr(22030 Diagnoses Encounter for well woman exam with routine gynecological exam Z01.419
== END 2023-08-02 09:17 | disposition home or self-care (01) ==
PROVIDERS: PCP Internal Medicine; Visit Provider Advanced Practice Midwife
DX: Z01.419 Encounter for gynecological examination (general) (routine) without abnormal findings (principal)
CPT/HCPCS: 99385

== ENCOUNTER 2023-08-02 08:37 | Outpatient (REF) | payer OTHER, SELFPAY ==
[2023-08-02 11:10] LABS: HBc Num1 0.09 S/CO (0.00-0.79); HIV AB/AG Nonreactive (Nonreactive); HIV Num 1 0.05 S/CO (0.00-0.99); Hepatitis B Core Antibody Nonreactive (Nonreactive); ~HepC Num1 0.13 S/CO (0.00-0.79); ~Hepatitis C Antibody Nonreactive (Nonreactive)
[2023-08-02 11:38] LABS: Syphilis Screen Nonreactive (Nonreactive)
[2023-08-02 14:49] LABS: CT PCR NOT DETECTED (Not Detect.); NG PCR NOT DETECTED (Not Detect.)
[2023-08-02 15:27] LABS: BV Int Neg Control Negative (Negative); BV Int Pos Control Positive (Positive)
== END 2023-08-02 08:38 | disposition home or self-care (01) ==
LOC: HO.LAB 08:37
PROVIDERS: PCP Internal Medicine; Visit Provider Advanced Practice Midwife
DX: Z01.419 Encounter for gynecological examination (general) (routine) without abnormal findings (principal); N94.6 Dysmenorrhea, unspecified; Z20.2 Contact with and (suspected) exposure to infections with a predominantly sexual mode of transmission
CPT/HCPCS: 0353U; 86704; 86780; 86803; 87389; 87480; 87510; 87660; 99385

== ENCOUNTER 2023-08-02 09:05 | Outpatient (REF) | payer OTHER, SELFPAY | END 2023-08-02 09:06 | disposition home or self-care (01) | LOC: HO.LNP 09:05 | PROVIDERS: Visit Provider Advanced Practice Midwife | DX: Z01.419 Encounter for gynecological examination (general) (routine) without abnormal findings (principal) | CPT/HCPCS: 88142 ==

== ENCOUNTER 2024-10-17 09:27 | Outpatient (AMB) | payer OTHER, SELFPAY ==
--- NOTE | 2024-10-17 09:30 | A.OFFPC_ITS ---
Vital Signs 10/17/24 09:31 Height 5 ft 4 in Weight 242 lb BMI 41.5 BP 126/80 Blood Pressure Location Lt brachial Position Sitting Intake Visit Reasons: annual exam Intake Note: Patient here for a physical exam Shale Miner Required: No Accompanied by: Self / Same As Patient Allergies No Known Allergies [No Known Allergies*] Allergy (Verified 10/17/24 09:52) Medication List - Last Reconciled 10/17/24 by Sole Childress MD cholecalciferol (vitamin D3) 50 mcg PO DAILY 90 days Tobacco use date assessed: 10/17/24 Dental Screening Dental Screen Date: 10/17/24 Did you have a dental problem in the last 6 months where you did not have access to dental care?: No Was dental information given to patient?: Patient has dentist HPI HPI Comments History of Present Illness Details The patient is a 28-year-old female presenting with concerns related to her physical examination. During the visit, her vaccination history was reviewed and it was noted that she has not received a tetanus vaccine in the past 10 years. Consequently, the patient has agreed to receive the tetanus vaccine today. Her medical history includes vitamin D deficiency, for which she has been taking supplements albeit inconsistently, as well as obesity, with a recorded BMI of 41. She reports a fluctuating weight pattern over the past few years, managing some weight loss between 2020 and 2021 before experiencing challenges in the current year. The patient reports a history of moderate depression and anxiety, confirmed by her self-administered PHQ-9 and FERNANDO scores. She chooses to manage these conditions without pharmacotherapy or psychological counseling, affirming the absence of suicidal ideation. Her social history indicates a past of smoking, now ceased, with alcohol consumption limited to special occasions. Family history notes a maternal mental health disorder, while her father is reportedly healthy without major issues. - Administered tetanus vaccination. - Screening labs to be conducted: vitami n D levels, cholesterol, blood sugar, kidney and liver function tests. - Weight management counseling suggested due to elevated BMI. - Encouragement of consistent vitamin D supplementation and dietary intake of vitamin D-rich foods such as salmon. [facility] Medical History Insomnia FERNANDO (generalized anxiety disorder) Moderate recurrent major depression Pure hypercholesterolemia Morbid obesity with BMI of 40.0-44.9, adult Depression Surgical History History of placement of ear tubes Family History Father No problems noted. Mother Mental health disorder Maternal Grandfather Hypertension CVD (cardiovascular disease) Social History Housing: Apartment Alcohol intake: current Alcohol intake frequency: holidays/special occasions on ly Alcohol type: other Patient Tobacco Use Status: Former Tobacco user Tobacco use type: Cigarette e-Cigarette/Vaping Use: Never Used Second Hand Smoke Exposure: No service: No Current occupational status: unemployed Cognitive needs: No Hearing needs: No Vision needs: No Questionnaire PHQ-9 Over the last 2 weeks, how often have you been bothered by any of the following problems? 1. Little interest or pleasure in doing things: more than half the days 2. Feeling down, depressed, or hopeless: more than half the days 3. Trouble falling or staying asleep, or sleeping too much: nearly every day 4. Feeling tired or having little energy: more than half the days 5. Poor appetite or overeating: several days 6. Feeling bad about yourself - or that you are a failure or have let yourself or your family down: more than half the days 7. Trouble concentrating on things, such as reading the newspaper or watching television: more than half the days 8. Moving or speaking so slowly that other people could have noticed. Or the opposite - being so fidgety or restless that you have been moving around a lot more than usual: several days 9. Thoughts that you would be better off or of hurting yourself in some way: several days Total score: 16 Depression Screening Interpretation: Positive (no suicidal thoughts) Depression Screening Follow-up: Existing condition and Follow-up Visit Requested Depression Screening Done: Yes 58816 - PHQ-9 Billing: Yes Source: Developed by Drs. Jose Rincon, Uzma Perez, Jamie Snow and colleagues, with an educational jonatan from [employer]. Thrive Questionnaire Date Thrive assessed: 10/14/24 I am a: Patient What is your living situation today?: I choose not to answer this question Within the past 12 months, did the food you bought not last and you didn't have the money to get more?: I choose not to answer this question Within the past 12 months, did you worry whether your food would run out before you got money to buy more?: I choose not to answer this question Do you have trouble paying for medicines?: I choose not to answer this question Do you have trouble getting transportation to medical appointments?: I choose not to answer this question Do you have trouble paying your heating and electricity bill?: I choose not to answer this question Do you have trouble taking care of your child, family member or friend?: I choose not to answer this question Do you have trouble with day-to-day activities such as bathing, preparing meals, shopping, managing finances, etc.?: I choose not to answer this question Are you currently unemployed and looking for a job?: I choose not to answer this question Are you interested in more education?: I choose not to answer this question Please select the resources that you would like help with: None Currently or been in a relationship where the following occur: No concerns reported THRIVE Score: 0 AUDIT C Alcohol Use Questionnaire (AUDIT-C) 1. How often do you have a drink containing alcohol?: Monthly or less 2. How many drinks containing alcohol do you have on a typical day when you are drinking?: 3 or 4 3. How often do you have six or more drinks on one occasion?: Never Total Score: 2 Score Reviewed/Action Taken: No FERNANDO-7 AMB Questionnaire FERNANDO-7 Date FERNANDO - 7 assessed: 10/17/24 Feeling nervous, anxious, or on edge: 3 = Nearly every day Not being able to stop or control worryin = More than half the days Worrying too much about different things: 3 = Nearly every day Trouble relaxin = Nearly every day Being so restless that it is hard to sit still: 2 = More than half the days Becoming easily annoyed or irritable: 3 = Nearly every day Feeling afraid as if something awful might happen: 2 = More than half the days Total FERNANDO-7 score (0-4 normal; 5-9 mild; 10-14 moderate; 15-21 severe): 18 Source: Developed by Drs. Jose Rincon, Uzma BJamie Call and colleagues, with an educational jonatan from [employer]. FERNANDO-7 Assessment Billing FERNANDO-7 Assessment Tool: FERNANDO-7 Assessment 35783 Review of Systems Const All systems reviewed & are unremarkable except as noted in HPI and below Card Denies chest pain at rest, Denies chest pain with activity, Denies edema, Denies irregular heart rhythm, Denies claudication, Denies dyspnea, Denies dyspnea on exertion, Denies orthopnea, Denies paroxysmal nocturnal dyspnea and Denies slow heart rate Resp Denies cough, Denies dyspnea and Denies dyspnea on exertion GI Denies abdominal pain, Denies change in bowel habits, Denies excessive flatus, Denies nausea and Denies vomiting Physical exam (Primary Care) Vital Signs: Last Vital Signs BP 126/80 10/17/24 09:31 BMI result Body Mass Index 41.5 BMI Assessment/Plan discussion: High BMI High, discussed plan: lifestyle, weight reduction, dietary and physical activity Tobacco/Smoking Status: Tobacco use Status Tobacco use date assessed 10/17/24 10/17/24 09:36 Patient Tobacco Use Status Former Tobacco user 10/17/24 09:36 Tobacco use type Cigarette 10/17/24 09:36 e-Cigarette/Vaping Use Never Used 10/17/24 09:36 PHQ-9: PHQ-9 Score PHQ-9: Total score 16 10/17/24 10:07 Depression Screening Interpretation: Positive (no suicidal thoughts) Depression Screening Follow-up: Existing condition and Follow-up Visit Requested Thrive Assessment: Date of Thrive Assessment Date Thrive assessed 10/14/24 10/17/24 09:36 Currently or been in a relationship where the following occur: No concerns reported [facility] Head: Yes normal to inspection, Yes normocephalic and Yes atraumatic Ears: external ears normal Eyes General: appearance normal, both eyes and all related structures Eyelids: Yes eyelids normal Conjunctivae: conjunctivae normal Neck Neck: Yes normal visual inspection and Yes supple Resp Effort & Inspection: normal respiratory effort Auscultation: clear to auscultation bilaterally Cardio Jugular venous distension: no JVD Rate: regular rate Rhythm: regular rhythm Heart sounds: S1 normal heart sound present and S2 normal heart sound present GI Inspection: Yes normal to inspection Palpation (GI): Soft to palpation and nontender Auscultation: normal bowel sounds Skin General skin exam: no rashes or lesions noted Neuro General: no focal motor deficits Extrem General: Yes full ROM Psych Appearance: grossly normal Immunizations Boostrix Tdap 2.5 Lf unit-8 mcg-5 Lf/0.5 mL intramuscular syringe Performing Provider: Sole Childress MD [facility] Administered by: MUNA Cueva on 10/17/24 10:08 Dose Route Admin Location Dispensed Lot Number Expiration Date [facility] Branch Operations Manager 0.5 mL IM Left Deltoid 0.5 mL [id number] 01/28/27 91088-451-42 [employer] VIS Given Date VIS Provided VIS Publication Date 10/17/24 Single Vaccine 24 Eligibility Eligibility Date Funding Source Not [facility] Eligible 10/17/24 Private Coding Level of Care Code Complex EM visit Add On G2211 Diagnoses Encounter for physical examination Z00.00 Moderate recurrent major depression F33.1 Morbid obesity with BMI of 40.0-44.9, adult E66.01; Z68.41 Additional Codes FERNANDO-7 Assessment Billing - FERNANDO-7 Assessment Tool: FERNANDO-7 Assessment 38343 ([id number]) PHQ-9 - 52754 - PHQ-9 Billing: Yes ([id number]) Time Spent (min) 30 Assessment & Plan Assessment & Plan (1) Encounter for physical examination: Code(s): Z00.00 - Encounter for general adult medical examination without abnormal findings Category: Medical (2) Moderate recurrent major depression: Code(s): F33.1 - Major depressive disorder, recurrent, moderate Category: Medical (3) Morbid obesity with BMI of 40.0-44.9, adult: Code(s): E66.01 - Morbid (severe) obesity due to excess calories; Z68.41 - Body mass index [BMI] 40.0-44.9, adult Category: Medical Plan During the visit, I focused on health maintenance and addressed pertinent issues for the patient. I administered the tetanus vaccination and discussed the importance of ongoing vitamin D supplementation along with dietary sources of vitamin D. The patient's obesity, with a BMI of 41, was discussed, and weight management strategies were explored. Regarding her mental health, she presented with moderate depression and anxiety. We agreed to monitor these conditions without current pharmacotherapy, emphasizing the importance of future assessment and intervention if needed. Patient was informed and verbally consented to the use of an ambient scribe for clinic note documentation during this visit. I discussed with the patient the overdue tetanus vaccination, which she received today, and the benefits of maintaining an up-to-date vaccination schedule to prevent tetanus and pertussis. We explored dietary and supplement strategies for addressing her vitamin D deficiency, noting the benefits of potential dietary changes and consistent supplementation. Addressing obesity, we discussed the impact of her current BMI of 41 on health and explored strategies for weight loss, acknowledging past efforts and future challenges. Considering her anxiety and depression, with scores of 18 and 16 respectively, we reviewed management options and agreed on monitoring without pharmacological intervention presently. I encouraged a return to her primary care physician for ongoing evaluation of her mental health status and to discuss potential intervention should the need arise. Orders: Orders Vitamin D 25-OH Total Today E55.9 - Vitamin D deficiency, unspecified Lipid Panel Today E78.5 - Hyperlipidemia, unspecified Complete Blood Count Auto Diff Today D64.9 - Anemia, unspecified IRON PROFILE Today D64.9 - Anemia, unspecified Comprehensive [place]. Panel Fast Today Z00.00 - Encounter for general adult medical examination without abnormal findings TDaP Immunization Today Z23 - Encounter for immunization Patient Instructions: - Receive the tetanus vaccine today. - Use vitamin D supplements as advised regularly. - Aim to include vitamin D-rich foods, like salmon, in your diet routinely. - Maintain your weight with lifestyle changes; seek advice if needed. - Continue being aware of and monitoring your mental health. - Return for follow-up of blood work and any health concerns.
[2024-10-17 09:31] VITALS: BP 126/80; BMI 41.5
--- OUTSIDE RECORDS SUMMARY | 2024-10-17 10:11 | XMS_ITS | Clinical Summary ---
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 Name Role Phone Aurora Teran MD Primary Care Provider Unavailabl e Immunizations Immunization Administration Dates Next Due DTaP 5 06/27/2000, 8,07/01/1996,04/29,02/26/1996 H1N1 09/02/2009 HPV, Quadrivalent 10/12/2010,09/02/2009,04/03/20 08 Hep A, ped/adol 10/12/2010 Hep B, ped/adol 07/01/1996,02/26/1996,1995 Hib (PRP-T) 04/07/1997, 7,04/29/1996,02/25 IPV 07/01/1996,04/29/1996,02/26/1996 Influenza Split 02/21/2012 Influenza, injectable, quadr ivalent, preservative free 03/01/2013 Influenza, injectable, trivalent 04/03/2008,03/07 MMR 06/27/2000,1996 Meningococcal Conj (Menactra) MCV4P 04/03/2008 OPV 06/27/2000 Tdap 04/03/2008 Varicella 04/03/2008,1996 Family History Relation Name Status Comments Cousin Alive Cousin: ADD/ADH D Maternal Grandfather Materna l grandfather: Diabetes mellitus, Hypertension Maternal Grandmother Materna l grandmother: , lungs problems Mother Alive Mother: Hyperli pidemia, Alive and well Other No family histo ry of Asthma, Family history of Obesity, Family history of Diabetes mellitus, No family history of Cancer, Family history of CVA (Stroke), Family history of Heart disease, No family history of Deafness, Family history of Migraines, Family history of Seizure disorder, No family history of Developmental dislocation of hip, No family history of Thrombophilia, No family history of Sudden /VT under age 55, Family history of Strabismus Social History Tobacco Use Types Packs/Day Years Used Date Smoking Tobacco: Never Comments:Never smoker Comments Unknown Sex and Gender Information Value Date Recorded Sex Assigned at Not on file Legal Sex Female 4:51 PM EDT Gender Identity Not on file Sexual Orientation Not on file Last Filed Vital Signs Vital Sign Reading Time Taken Comments Blood Pressure 110/80 05/07/2013 12:00 AM EST Pulse 96 02/08/2011 12:00 AM EDT Temperature 37.1 ??C (98.8 ??F) 03/07/2012 12:00 AM E DT Respiratory Rate - - Oxygen Saturation - - Inhaled Oxygen Concentration - - Weight 96.6 kg (213 lb) 05/07/2013 12:00 AM EST Height 160.7 cm (5' 3.25 ) 05/07/2013 12:[address] Body Mass Index 37.43 05/07/2013 12:00 AM EST Plan of Treatment Health Maintenance Due Date Last Done Comments Hepatitis A Vaccines (2 of 2 - 2-dose series) 04/14/2011 10/12/2010 DTaP,Tdap,and Td Vaccines (7 - Td or Tdap) 04/03/2018 04/03/2008, 06/27/2000, 06/30/1997, Additional history exists Influenza Vaccines (#1) 2024 03/01/20 13, 02/21/2012, 04/03/2008, Additional history exists COVID-19 Vaccine ( season) 2024 Hepatitis B Vaccines Completed 07/01/1996, 02/26/1996, 1995 HIB Vaccines Completed 04/07/1997, 06/06, 04/29/1996, Additional history exists IPV Vaccines Completed 06/27/2000, 06/06, 04/29/1996, Additional history exists MMR Vaccines Completed 06/27/2000, 1996 Meningococcal Vaccine Aged Out 04/03/2008 No farrah jeremias eligible based on patient's age to complete this topic Varicella Vaccines Completed 04/03/2008, 1996 HPV Vaccines Completed 10/12/2010, 08/05, 04/03/2008 Men B Vaccine Aged Out No longer elig ible based on patient's age to complete this topic Pneumococcal Vaccine Aged Out No long er eligible based on patient's age to complete this topic Care Teams Gas Well Drilling Manager Relationship Specialty Start Date End Date Aurora Teran MD PCP - General 01/13/17
--- OUTSIDE RECORDS SUMMARY | 2024-10-17 10:11 | XMS_ITS | Encounter Summary ---
Author Organization [facility] Address [address] [place] [phone] Phone Care Team Providers Care Sales Support Rep Name Role Phone Aurora Teran MD Primary Care Provider Unavailabl e Encounter Details Date Type Department Care Team (Late st Contact Info) Description 01/19/2017 Conversion Encounter [facility] - [address] [id number] Social History Tobacco Use Types Packs/Day Years Used Date Smoking Tobacco: Never Comments:Never smoker Comments Unknown Sex and Gender Information Value Date Recorded Sex Assigned at Not on file Legal Sex Female 4:51 PM EDT Gender Identity Not on file Sexual Orientation Not on file documented as of this encounter Plan of Treatment Not on file documented as of this encounter Visit Diagnoses Not on filedocumented in this encounter Care Teams Sales Support Rep Relationship Specialty Start Date End Date Aurora Teran MD PCP - General 01/13/17 documented as of this encounter
== END 2024-10-17 10:09 | disposition home or self-care (01) ==
LOC: HO.HMCH 09:28
PROVIDERS: PCP Internal Medicine; Visit Provider Internal Medicine
DX: Z00.00 Encounter for general adult medical examination without abnormal findings (principal); F33.1 Major depressive disorder, recurrent, moderate; E66.01 Morbid (severe) obesity due to excess calories; Z68.41 Body mass index [BMI] 40.0-44.9, adult; Z23 Encounter for immunization

== ENCOUNTER → 2024-10-17 09:27 | Outpatient (BNVA) | payer OTHER, SELFPAY | PROVIDERS: PCP Internal Medicine; Visit Provider Internal Medicine | DX: Z00.00 Encounter for general adult medical examination without abnormal findings (principal); F33.1 Major depressive disorder, recurrent, moderate; E66.01 Morbid (severe) obesity due to excess calories; E55.9 Vitamin D deficiency, unspecified; E78.5 Hyperlipidemia, unspecified; D64.9 Anemia, unspecified; Z23 Encounter for immunization; Z68.41 Body mass index [BMI] 40.0-44.9, adult | CPT/HCPCS: 90471; 90715; 96127; 99395 ==